=== PATIENT | female | born 1985 | race Caucasian/White ===

== ENCOUNTER 2019-05-30 15:00 | Emergency (ER) | payer OTHER ==
[~2019-05-30] VITALS: Ht 162.6 cm; Wt 71.2 kg
[2019-05-30] MEDS ORDERED: IBUPROFEN 600 MG TABLET PO ONE ×2 (16:20→16:30)
[2019-05-30 17:02] VITALS: BP 128/77
--- NOTE | 2019-05-30 17:08 | NUR ---
SEEN AND EVALUATED BY LIS ABAD. DAISY WRAP APPLIED. MEDICALLY CLEARED FOR BOOKING. D/C IN STABLE CONDITION.
== END 2019-05-30 17:12 | disposition home or self-care (01) ==
LOC: ER 15:04
DX: M25.572 Pain in left ankle and joints of left foot (principal)
CPT/HCPCS: 73610-TC